=== PATIENT | female | born 1995 | race Caucasian/White ===

== ENCOUNTER 2017-01-09 12:48 | Emergency (ER) | payer SELFPAY ==
[~2017-01-09 12:48] MED LIST: NORG1TAB34 PO; PROP10TA PO
--- NOTE | 2017-01-09 13:15 | ED.ADGEN ---
Past History Past Medical History: Anxiety Past Surgical History: Tonsillectomy, Other Smoking: Non-smoker Alcohol Use: Rarely Drug Use: None Social History Narrative: works as a wire cutter Adult General Chief Complaint Chief Complaint Sunburn HPI HPI Patient is a 21 year old female who presents with 2 day history of painful sunburn involving the back or legs and the back of her trunk and not as severely but also on the front chest. Some associated nausea no fever. Has been using the usual topical baar-bdw-seebirh creams with minimal improvement. No blistering reported. Review of Systems Review of Systems Constitutional: Denies fever or chills [] Eyes: Denies change in visual acuity, redness, or eye pain [] HENT: Denies nasal congestion or sore throat [] Respiratory: Denies cough or shortness of breath [] Cardiovascular: No additional information not addressed in HPI [] GI: Denies abdominal pain, nausea, vomiting, bloody stools or diarrhea [] : Denies dysuria or hematuria [] Musculoskeletal: Denies back pain or joint pain [] Integument: Denies rash or skin lesions [] Neurologic: Denies headache, focal weakness or sensory changes [] Endocrine: Denies polyuria or polydipsia [] Allergies Allergies Allergies Coded Allergies Type Severity Reaction Last Updated Verified No Known Drug Allergies 05/17/14 No Physical Exam Physical Exam Constitutional: Well developed, well nourished, no acute distress, non-toxic appearance. [] HENT: Normocephalic, atraumatic, bilateral external ears normal, oropharynx moist, no oral exudates, nose normal. [] Eyes: PERRLA, EOMI, conjunctiva normal, no discharge. [] Neck: Normal range of motion, no tenderness, supple, no stridor. [] Cardiovascular: Borderline tachycardia at around 103 regular rhythm no murmur [] Lungs & Thorax: Bilateral breath sounds clear to auscultation [] Abdomen: Bowel sounds normal, soft, no tenderness, no masses, no pulsatile masses. [] Skin: Warm, dry, diffuse erythematous rash consistent with a sunburn first- degree involving the back of the trunk not as severely on the forearms and anterior chest. No blisters seen [] Back: No tenderness, no CVA tenderness. [] Extremities: No tenderness, no cyanosis, no clubbing, ROM intact, no edema. [] Neurologic: Alert and oriented X 3, normal motor function, normal sensory function, no focal deficits noted. [] Psychologic: Affect normal, judgement normal, mood normal. [] EKG EKG [] Radiology/Procedures Radiology/Procedures [] Course & Med Decision Making Course & Med Decision Making Pertinent Labs and Imaging studies reviewed. (See chart for details) Recommend the use of aloe vera gel and will prescribe a few Percocets to help with breakthrough pain. [] Final Impression Final Impression Severe sunburn [] Problems: Dragon Disclaimer Dragon Disclaimer This electronic medical record was generated, in whole or in part, using a voice recognition dictation system. JOSE LAZO MD Jan 09, 2017 13:15
[2017-01-09] MEDS ORDERED: ONDA4TAB12 PO (13:19)
[2017-01-09] MEDS ORDERED: OXYC-323 PO (13:19)
[2017-01-09 13:27] VITALS: BP 111/63
== END 2017-01-09 13:35 | disposition home or self-care (01) ==
LOC: ER 12:48
DX: L55.0 Sunburn of first degree (principal); R11.0 Nausea; F41.9 Anxiety disorder, unspecified
CPT/HCPCS: 99283

== ENCOUNTER → 2020-10-13 | Outpatient (CLI) | payer BC ==
[~2020-10-13] VITALS: Ht 167.6 cm; Wt 117.5 kg
[~2020-10-13] MED LIST changes: -NORG1TAB34 PO; +NORG1TAB70 PO; +NORMAL SALINE IV ONE; +ONDA4TAB12 PO; +OXYC1TAB15 PO; +SINCALIDE IV ONE
--- NOTE | 2020-10-13 10:05 | RAD ---
NM HEPATOBILIARY SCAN W/PHARM History:Reason: RUQ PAIN / Spl. Instructions: / History: Comparison: Ultrasound October 08, 2020 Technique: 5 mCi technetium 99m Choletec was administered intravenously and spot views were obtained on the gamma camera for a Nuclear Medicine hepatobiliary scan. 2.4 mcg of CCK drip was administered over 30 minutes and the region of interest was drawn around the gallbladder and gallbladder ejection fraction was calculated. Findings: There is rapid uptake of activity from the blood pool and concentration in the liver. Activity seen i n the gallbladder at 15 minutes and small bowel at 30 minutes. There is a rapid response of the gallbladder to CCK and the gallbladder ejection fraction is 61% whic h is normal. Impression: 1. Normal hepatobiliary scan. Normal gallbladder ejection fraction. Electronically signed by: Israel Talley DO (10/13/2020 10:03 AM) [id number]
== END ==
LOC: NM 07:33
PROVIDERS: ATTEND Family Medicine
DX: R10.11 Right upper quadrant pain (principal)
CPT/HCPCS: 78227; A9537; J2805

== ENCOUNTER → 2021-01-07 | Outpatient (CLI) | payer BC ==
[~2021-01-07] MED LIST changes: -NORMAL SALINE IV ONE; +OMEP40CA7 PO; -SINCALIDE IV ONE
== END ==
LOC: LAB 07:00
PROVIDERS: ATTEND Nurse Anesthetist, Certified Registered
DX: Z01.812 Encounter for preprocedural laboratory examination (principal); K21.9 Gastro-esophageal reflux disease without esophagitis; Z20.822 Contact with and (suspected) exposure to COVID-19
CPT/HCPCS: U0003

== ENCOUNTER → 2021-01-11 | Day surgery (SDC) | payer BC ==
[~2021-01-11] MED LIST changes: +IPRATRPIUM/ALBUTEROL 0.5/2.5MG 3 ML NEBU. NEB PRN; +IV RINGERS SOLUTION,LACTATED 1,000 ML IV SCH; +LIDOCAINE 2% PF 5 ML VIAL. ONE; +MIDAZOLAM HCL PF 2 MG/2 ML VIAL. IV ONE; +ONDANSETRON PF 4 MG/2 ML VIAL. IV PRN; +PROPOFOL 10,000 MCG/ML (20ML) VIAL IV ONE
[2021-01-11 07:23] LABS: U PREG PATIENT NEGATIVE (NEG)
[2021-01-11 08:38] VITALS: BP 114/75
--- NOTE | 2021-01-13 12:07 | PATHOLOGY ---
[facility] Accession Number: [id number] . 01 Material submitted: . PART A: small bowel - SMALL BOWEL BIOPSY PART B: stomach - ANTRUM BIOPSY. Modifiers: ANTRUM . 01 Clinical history: . RUQ PAIN EGD . 02 Diagnosis: A. Small bowel biopsy: - No significant pathologic abnormalities. . B. Gastric biopsy, antrum: - Chronic gastritis, mild. . (JPM:mm; 01/13/2021) [facility] 01/13/2021 1017 Local . 02 Comment: Sections of small bowel biopsy reveal segments of duodenal and small intestine mucosa. Where best oriented, the mucosal villi show no sprue-like changes or significant inflammatory changes. . Sections of the gastric biopsy reveal segments of gastric antral and antral/body transition mucosa showing congestion and mild chronic inflammation. A properly-controlled immunoperoxidase stain for Helicobacter is negative for Helicobacter organisms. . Special stain: Immunoperoxidase stain for Helicobacter on B1 . (JPM:mml; 01/13/2021) . 02 Electronically signed: . Joey Mcdaniel MD, Pathologist NPI- [id number] . 01 Gross description: . A. Received in formalin labeled "Sifuentes, Claude, small bowel bx" are multiple dexter-brown soft tissue fragments measuring in aggregate 0.5 x 0.3 x 0.1 cm. The specimen is submitted entirely in A1. . B. Received in formalin labeled "Sifuentes, Claude, antrum bx" are 2 dexter-brown soft tissue fragments measuring in aggregate 0.4 x 0.3 x 0.1 cm. The specimen is submitted entirely in B1. (FAVIO; 01/12/2021) [facility] 01/12/2021 1140 Local . 02 Pathologist provided ICD-10: K29.50 . 02 CPT . 531595, [id number], [id number] Specimen Comment: A courtesy copy of this report has been sent to [phone], [phone] Specimen Comment: [id number] Specimen Comment: Report sent to / DR DAMON Performed at: 01 [facility] [address] [place] [address] [address], [place] [id number] MD Kleber Rojas MD Phone: [phone] Performed at: 02 [facility] [address] [place], [place] [id number] MD Joey Mcdaniel MD Phone: [phone]
== END | disposition home or self-care (01) ==
LOC: SURG 06:43
PROVIDERS: ATTEND Internal Medicine Gastroenterology
DX: R10.11 Right upper quadrant pain (principal); K21.9 Gastro-esophageal reflux disease without esophagitis; K29.50 Unspecified chronic gastritis without bleeding; R19.8 Other specified symptoms and signs involving the digestive system and abdomen; F41.9 Anxiety disorder, unspecified; E66.9 Obesity, unspecified; Z87.891 Personal history of nicotine dependence
CPT/HCPCS: 43239; 81025; J2001; J2704; J7120